=== PATIENT | female | born 1965 | race Caucasian/White ===

== ENCOUNTER 2016-07-09 16:33 | Emergency (ER) | payer MEDICARE, BC ==
[~2016-07-09 16:33] MED LIST: ALDACTONE100 M1 PO; ALDACTONE100 MG PO; ALDACTONE50 M1 PO; AMBIEN10 M1 PO; AMBIEN5 MG PO; AMITRIPTYLINE H10 M1 PO; ANTIBIOTIC; ANTIBIOTIC PO; BACTRIM DS1 TA1 PO; BARACLUDE PO; BARACLUDE1 MG PO; CARAFATE1 G2 PO; CHEMO; CIPRO500 MG PO; COMPAZINE10 M PO; CORGARD40 M1 PO; CORGARD40 MG PO; CULTURELLE1 EAC1 PO; DAKLINZA60 MG PO; EFFER-K 10 MEQ10 ME1 PO; ENTECAVIR PO; ENULOSE10 GM/151 PO; FIORICET 50-301 EAC1 PO; FUROSEMIDE 1 MG/ML PO; GABAPENTIN300 MG PO; HYDROXYZINE HCL10 M1 PO; IBUPROFEN200 M1 PO; IMODIUM2 MG PO; IPRATROPIUM BRO15 M1; K-DUR20 ME1 PO; K-TAB ER10 MEQ PO; KEFLEX500 M1 PO; KEFLEX500 MG PO; LACTULOSE20 GM/30 M PO; LASIX20 M1 PO; LASIX40 M1 PO; LASIX40 MG PO; LEVAQUIN250 MG PO; LEVAQUIN750 MG PO; LOPERAMIDE2 M3 PO; MILK OF MA2400 MG/10 PO; MIRALAX17 G2 PO; MIRALAX17 GM PO; NADOLOL PO; NORCO 10/325 TA1 TAB PO; NORCO 10/3251 TAB PO; NORCO 5-325 TA1 EACH PO; NORCO 5/325 TAB1 TAB PO; NORCO 5/3251 TAB PO; OMEPRAZOLE20 M4 PO; OMEPRAZOLE40 M2 PO; OXYCODONE/APAP PO; PAMELOR10 M2 PO; PERCOCET 5-3251 EACH PO; PERCOCET 5/3251 TAB PO; PERCOCET 5MG/AP1 TA1 PO; PERIDEX480 ML MM; POLYTRIM EYE DR10 ML RIGHT EYE; PROCHLORPERAZIN10 MG PO; PROPRANOLOL HCL10 M1 PO; PROTONIX40 M1 PO; PROTONIX40 M2 PO; PYRIDIUM200 M1 PO; PYRIDIUM200 MG PO; RIBAVIRIN200 M1 PO; SOVALDI400 M1 PO; STOP HOME MEDICATION; TYLENOL500 MG PO; TYLENOL650 MG PO; ULTRAM50 MG PO; VICODIN 5/500 T1 TAB PO; XIFAXAN550 M1 PO; ZOFRAN4 M2 PO; ZOFRAN8 MG PO; [UNRECOGNIZED DRUG - OTHER] PO; [UNRECOGNIZED DRUG - REMARK]
[2016-07-09 17:44] LABS: EOS % 6.9 % (0-7); EOSINOPHIL ABSOLUTE COUNT 0.3 tho/cmm (0.0-0.7); HCT-HEMATOCRIT 32.9 % (34.0-49.0); HGB-HEMOGLOBIN 11.3 gm/dl (12.0-15.5); LYMPH % 40.9 % (20-45); LYMPH ABSOLUTE COUNT 1.7 tho/cmm (0.8-4.5); MCH (MEAN CORPUSCULAR HGB) 30.1 pg (28.0-32.0); MCHC MEAN CORPUSCULAR HGB CONC 34.3 % (32.0-36.0); MCV (MEAN CELL VOLUME) 87.7 fl (82.0-96.0); MONO % 11.2 % (0-12); MONOCYTE ABSOLUTE COUNT 0.5 tho/cmm (0.0-1.2); NEUTROPHIL ABSOLUTE COUNT 1.6 tho/cmm (1.6-8.0); NEUTROPHIL-AUTOMATED 1.6 tho/cmm (1.6-8.0); RED BLOOD COUNT 3.75 mil/cmm (4.00-5.20); RED CELL DISTRIBUTION WIDTH 15.3 % (12.4-16.4)
[2016-07-09 17:58] LABS: ALB/GLOB RATIO 0.5 (0.8-2.0); ALBUMIN 2.6 g/dl (3.5-5.0); ALKALINE PHOSPHATASE 159 U/L (33-138); ALT/SGPT 31 U/L (12-78); ANION GAP 12 mmol/L (0-20); AST/SGOT 64 U/L (10-40); BILIRUBIN,DIRECT 0.9 mg/dl (0.0-0.3); BILIRUBIN,INDIRECT 0.9 mg/dL (0.0-1.0); BILIRUBIN,TOTAL 1.8 mg/dl (0-1.5); BLOOD UREA NITROGEN 13 mg/dl (6-24); CALCIUM 8.2 mg/dl (8.5-10.5); CARBON DIOXIDE-VENOUS 29 mmol/L (22-32); CHLORIDE 105 mmol/l (96-110); CREATININE 1.18 mg/dl (0.50-1.10); GLUCOSE 113 mg/dL (70-110); POTASSIUM 3.9 mmol/L (3.7-5.1); SODIUM 142 mmol/L (135-145); eGFR VALUE FOR BLACK 61 mL/Min
[2016-07-09 18:18] LABS: PLATELET COUNT 88 tho/cmm (150-450)
[2016-07-09 18:50] LABS: URINE BILIRUBIN NEGATIVE (NEG); URINE BLOOD NEGATIVE (NEG); URINE GLUCOSE (UA) NEGATIVE (NEG); URINE KETONE NEGATIVE (NEG); URINE LEUKOCYTE ESTERASE NEGATIVE (NEG); URINE NITRITE NEGATIVE (NEG); URINE PROTEIN NEGATIVE (NEG)
[2016-07-09 18:54] LABS: URINE APPEARANCE CLEAR; URINE COLOR YELLOW
[2016-07-09] MEDS ORDERED: NORCO 5-325 TA1 EACH PO (19:11)
[2016-10-10] MEDS ORDERED: OXYCODONE HCL5 M1 PO (17:06)
[2016-10-20] MEDS ORDERED: FLAGYL500 M1 PO (16:05)
[2016-10-20] MEDS ORDERED: MILK OF MAGNESIA PO (16:36)
[2016-10-20] MEDS ORDERED: MIRALAX17 G2 PO (16:40)
[2016-10-20] MEDS ORDERED: SENOKOT-S TABL1 EACH PO (16:41)
[2016-10-20] MEDS ORDERED: ZOFRAN4 M2 PO (16:42)
[2016-10-20] MEDS ORDERED: PROTONIX40 M2 PO (16:43)
== END 2016-07-09 19:39 ==
LOC: EDMED 16:33
PROVIDERS: Physician Assistant
DX: N83.201 Unspecified ovarian cyst, right side (principal); K74.60 Unspecified cirrhosis of liver; Z90.89 Acquired absence of other organs; Z90.49 Acquired absence of other specified parts of digestive tract; Z88.8 Allergy status to other drugs, medicaments and biological substances; Z90.13 Acquired absence of bilateral breasts and nipples; Z79.899 Other long term (current) drug therapy